=== PATIENT | male | born 1970 | race African-American/Black ===

== ENCOUNTER 2024-03-24 12:42 | Emergency (ER) | payer OTHER, BC ==
[2024-03-24 13:05] VITALS: BP 135/94; PULSE 18; RESP 16; TEMP 98.6; BMI 25.0
[2024-03-24] MEDS ORDERED: ACETAMINOPHEN 500 MG TABLET (FP) ONE (13:56)
[2024-03-24] MEDS: ACETAMINOPHEN 500 MG TABLET (FP) PO ONE (13:57)
== END 2024-03-24 17:53 | disposition home or self-care (01) ==
LOC: FER 12:42
DX: S62.514A Nondisplaced fracture of proximal phalanx of right thumb, initial encounter for closed fracture (principal); X58.XXXA Exposure to other specified factors, initial encounter
CPT/HCPCS: 73130-TC-LT-FY; 99283-25